=== PATIENT | male | born 1985 | race African-American/Black ===

== ENCOUNTER 2018-06-13 20:27 | Emergency (ER) | payer OTHER ==
[2018-06-13] MEDS ORDERED: Bacitracin Zinc 1 Packet ONE (21:03)
== END 2018-06-13 21:10 | disposition home or self-care (01) ==
LOC: ERS 20:27
DX: S61.211D Laceration without foreign body of left index finger without damage to nail, subsequent encounter (principal); F17.210 Nicotine dependence, cigarettes, uncomplicated; X58.XXXD Exposure to other specified factors, subsequent encounter

== ENCOUNTER 2025-05-07 16:01 | Inpatient (IN) | payer OTHER, SELFPAY ==
[2025-05-07] MEDS ORDERED: cefTRIAXone (ROCEPHIN) 2 GM VIAL ONE (18:23)
[2025-05-07 18:58] LABS: Hematocrit 35.5 % (42.0-52.0); Hemoglobin 11.9 g/dL (14.0-18.0); Mean Corpuscular Hemoglobin 30.6 pg (27.0-31.0); Mean Corpuscular Volume 91.3 fL (78.0-98.0); Platelet Count 310 10x3/uL (130-400); Red Blood Cell (RBC) Count 3.89 mill/uL (4.70-6.10); White Blood Cell (WBC) Count 34.03 10x3/uL (4.8-10.8)
[2025-05-07 19:13] LABS: Anisocytosis SLIGHT = 6-15 cells HPF (0-5); Dohle Bodies SLIGHT; Macrocytosis SLIGHT = 6-15 cells HPF (0-5); Platelet Adequacy Comment Platelets Normal; Smudge Cells 2.0 %; Toxic Granulation MODERATE
[2025-05-07 19:14] LABS: ALT (SGPT) 34 U/L (Less than 45); AST (SGOT) 127 U/L (11-34); Acetaminophen Less than 10 mcg/mL (Less than 10); Albumin 2.4 g/dL (3.1-4.5); Alkaline Phosphatase 116 U/L (40-110); Anion Gap 18 mmol/L (10-20); BUN (Urea Nitrogen) 42 mg/dL (8.9-20.6); Bilirubin, Total 1.8 mg/dL (0.3-1.2); Calc. Creatinine Clearance 0 mL/min (70-130); Calcium 9.2 mg/dL (7.8-10.44); Carbon Dioxide 21 mmol/L (22-29); Chloride 102 mmol/L (98-107); Globulin 6.6 g/dL (2.4-3.5); Glucose 107 mg/dL (70-105); Lipase 58 U/L (8-78); Potassium 4.9 mmol/L (3.5-5.1); Salicylate Less than 8.0 mg/dL (Less than 8.0); Sodium 136 mmol/L (136-145)
[2025-05-07 19:19] LABS: Troponin I 0.014 ng/mL (< 0.028)
[2025-05-07] MEDS ORDERED: Cefepime 2 GM VIAL ONE (19:22)
[2025-05-07] MEDS ORDERED: LevoFLOXacin 750 mg/D5W 150 ml Premix Bag ONE (19:42)
[2025-05-07 20:44] LABS: Cocaine Metabolite Screen Negative (Negative); THC/Cannabinoid Screen PRELIM POSITIVE (Negative); Tricyclic Screen Negative (Negative)
[2025-05-07] MEDS ORDERED: Calcium Carbonate 500 MG ChewTAB PO PRN (22:23)
[2025-05-07] MEDS ORDERED: Ondansetron PF 4 MG/2 ML Vial IVP PRN (22:23)
[2025-05-07] MEDS ORDERED: Electrolyte Replacement Protocol 1 EACH FS SCH (22:30)
[2025-05-07] MEDS: VANCOMYCIN 1.75 GM/350 ML Premix BAG IVPB SCH (23:53)
[2025-05-08 00:48] VITALS: BMI 18.1
[2025-05-08 07:22] LABS: ALT (SGPT) 19 U/L (Less than 45); AST (SGOT) 59 U/L (11-34); Albumin 1.7 g/dL (3.1-4.5); Alkaline Phosphatase 90 U/L (40-110); Anion Gap 9 mmol/L (10-20); BUN (Urea Nitrogen) 23 mg/dL (8.9-20.6); Bilirubin, Total 0.8 mg/dL (0.3-1.2); Calc. Creatinine Clearance 82 mL/min (70-130); Calcium 8.1 mg/dL (7.8-10.44); Carbon Dioxide 19 mmol/L (22-29); Chloride 112 mmol/L (98-107); Globulin 4.8 g/dL (2.4-3.5); Glucose 98 mg/dL (70-105); Potassium 4.4 mmol/L (3.5-5.1); Sodium 136 mmol/L (136-145)
[2025-05-08 08:04] LABS: Hematocrit 26.5 % (42.0-52.0); Hemoglobin 8.7 g/dL (14.0-18.0); Mean Corpuscular Hemoglobin 30.3 pg (27.0-31.0); Mean Corpuscular Volume 92.3 fL (78.0-98.0); Platelet Count 268 10x3/uL (130-400); Red Blood Cell (RBC) Count 2.87 mill/uL (4.70-6.10); White Blood Cell (WBC) Count 26.50 10x3/uL (4.8-10.8)
[2025-05-08 09:10] LABS: Platelet Adequacy Comment Platelets Normal; Polychromasia SLIGHT = 2-3 cells HPF (0-2); Target Cells SLIGHT = 2-5 cells HPF (0-1); Toxic Granulation MODERATE
[2025-05-09 06:46] LABS: #Basophils 0.03 10x3/uL (0.0-0.2); #Eosinophils 0.03 10x3/uL (0.0-0.7); #Monocytes 0.39 10x3/uL (0.11-0.59); #Neutrophils 10.72 10x3/uL (1.40-6.50); %Basophils 0.3 % (0.0-1.0); %Eosinophils 0.3 % (0.0-10.0); %Lymphocytes 2.6 % (21.0-51.0); %Monocytes 3.3 % (0.0-10.0); %Neutrophils 91.6 % (42.0-75.0); Hematocrit 31.8 % (42.0-52.0); Hemoglobin 10.0 g/dL (14.0-18.0); Mean Corpuscular Hemoglobin 29.2 pg (27.0-31.0); Mean Corpuscular Volume 92.7 fL (78.0-98.0); Platelet Count 331 10x3/uL (130-400); Red Blood Cell (RBC) Count 3.43 mill/uL (4.70-6.10); White Blood Cell (WBC) Count 11.70 10x3/uL (4.8-10.8)
[2025-05-09 07:03] LABS: ALT (SGPT) 18 U/L (Less than 45); AST (SGOT) 51 U/L (11-34); Albumin 1.7 g/dL (3.1-4.5); Alkaline Phosphatase 75 U/L (40-110); Anion Gap 10 mmol/L (10-20); BUN (Urea Nitrogen) 14 mg/dL (8.9-20.6); Bilirubin, Total 0.3 mg/dL (0.3-1.2); Calc. Creatinine Clearance 107 mL/min (70-130); Calcium 8.5 mg/dL (7.8-10.44); Carbon Dioxide 20 mmol/L (22-29); Chloride 111 mmol/L (98-107); Globulin 4.8 g/dL (2.4-3.5); Glucose 98 mg/dL (70-105); Potassium 4.2 mmol/L (3.5-5.1); Sodium 137 mmol/L (136-145)
[2025-05-09 07:26] LABS: Hep C Index 0.15 S/CO (0-0.79)
[2025-05-09 08:01] LABS: Hep A IgM AB NONREACTIVE (NonReactive); Hep B Surf Ag NONREACTIVE S/CO (NonReactive)
[2025-05-09 08:02] LABS: Hep A IgM S/CO 0.13 S/CO (0-0.79); Hep B Core IgM Index 0.08 S/CO (0-0.79); Hep C IgG Ab NONREACTIVE S/CO (NonReactive)
[2025-05-09 08:11] LABS: HIV (1/2) Antibody/Antigen Reflxed Confirmation (NonReactive)
[2025-05-09 08:16] LABS: HIV 1/2 INDEX 821.01 S/CO (<1.00)
[2025-05-09 13:59] VITALS: BMI 18.1
[2025-05-10 06:03] LABS: #Basophils Less than 0.03 10x3/uL (0.0-0.2); #Eosinophils 0.08 10x3/uL (0.0-0.7); #Monocytes 0.40 10x3/uL (0.11-0.59); #Neutrophils 7.94 10x3/uL (1.40-6.50); %Basophils 0.1 % (0.0-1.0); %Eosinophils 0.9 % (0.0-10.0); %Lymphocytes 3.9 % (21.0-51.0); %Monocytes 4.4 % (0.0-10.0); %Neutrophils 87.1 % (42.0-75.0); Hematocrit 27.3 % (42.0-52.0); Hemoglobin 8.9 g/dL (14.0-18.0); Mean Corpuscular Hemoglobin 29.6 pg (27.0-31.0); Mean Corpuscular Volume 90.7 fL (78.0-98.0); Platelet Count 366 10x3/uL (130-400); Red Blood Cell (RBC) Count 3.01 mill/uL (4.70-6.10); White Blood Cell (WBC) Count 9.12 10x3/uL (4.8-10.8)
[2025-05-10 06:24] LABS: ALT (SGPT) 29 U/L (Less than 45); AST (SGOT) 82 U/L (11-34); Albumin 1.7 g/dL (3.1-4.5); Alkaline Phosphatase 66 U/L (40-110); Anion Gap 8 mmol/L (10-20); BUN (Urea Nitrogen) 10 mg/dL (8.9-20.6); Bilirubin, Total 0.4 mg/dL (0.3-1.2); Calc. Creatinine Clearance 120 mL/min (70-130); Calcium 8.1 mg/dL (7.8-10.44); Carbon Dioxide 20 mmol/L (22-29); Chloride 108 mmol/L (98-107); Globulin 4.6 g/dL (2.4-3.5); Glucose 98 mg/dL (70-105); Potassium 4.3 mmol/L (3.5-5.1); Sodium 132 mmol/L (136-145)
[2025-05-10] MEDS: Nystatin 500,000 UNITS/5 ML UDCUP SSW SCH (12:34)
[2025-05-10 14:14] LABS: %CD4 (Helper/Inducer) 0.7 % (30.8-58.5); Absolute CD4 3 /uL (359-1519); Lymphocytes/Gated Cell Count 0.4 x10E3/uL (0.7-3.1); Total Lymphocyte 3 % (Not Estab.); WBC Total Count 11.2 x10E3/uL (3.4-10.8)
[2025-05-10] MEDS: Diphenoxylate HCl/Atropine Tablet PO SCH (14:28)
[2025-05-11] MEDS: Acetaminophen 325 MG TAB PO PRN (04:47)
[2025-05-11 05:48] LABS: Hematocrit 29.0 % (42.0-52.0); Hemoglobin 9.5 g/dL (14.0-18.0); Mean Corpuscular Hemoglobin 30.4 pg (27.0-31.0); Mean Corpuscular Volume 92.7 fL (78.0-98.0); Platelet Count 367 10x3/uL (130-400); Red Blood Cell (RBC) Count 3.13 mill/uL (4.70-6.10); White Blood Cell (WBC) Count 7.43 10x3/uL (4.8-10.8)
[2025-05-11 06:01] LABS: ALT (SGPT) 44 U/L (Less than 45); AST (SGOT) 101 U/L (11-34); Albumin 1.9 g/dL (3.1-4.5); Alkaline Phosphatase 63 U/L (40-110); Anion Gap 10 mmol/L (10-20); BUN (Urea Nitrogen) 9 mg/dL (8.9-20.6); Bilirubin, Total 0.4 mg/dL (0.3-1.2); Calc. Creatinine Clearance 103 mL/min (70-130); Calcium 8.3 mg/dL (7.8-10.44); Carbon Dioxide 18 mmol/L (22-29); Chloride 105 mmol/L (98-107); Globulin 4.8 g/dL (2.4-3.5); Glucose 102 mg/dL (70-105); Potassium 4.3 mmol/L (3.5-5.1); Sodium 129 mmol/L (136-145)
[2025-05-11 06:45] LABS: Anisocytosis SLIGHT = 6-15 cells HPF (0-5); Macrocytosis SLIGHT = 6-15 cells HPF (0-5); Platelet Adequacy Comment Platelets Normal; Polychromasia SLIGHT = 2-3 cells HPF (0-2); Smudge Cells 14.9 %
[2025-05-11] MEDS ORDERED: Iopamidol-370 76% 500 ML MDV (1 ML CHARGE) ONE (12:39)
[2025-05-11] MEDS: Sulfameth/Trimethoprim DS 800-160mg TAB PO SCH (20:26)
[2025-05-12 08:30] LABS: #Basophils Less than 0.03 10x3/uL (0.0-0.2); #Eosinophils 0.03 10x3/uL (0.0-0.7); #Monocytes 0.47 10x3/uL (0.11-0.59); #Neutrophils 8.11 10x3/uL (1.40-6.50); %Basophils 0.2 % (0.0-1.0); %Eosinophils 0.3 % (0.0-10.0); %Lymphocytes 6.0 % (21.0-51.0); %Monocytes 4.9 % (0.0-10.0); %Neutrophils 84.2 % (42.0-75.0); Hematocrit 30.4 % (42.0-52.0); Hemoglobin 9.9 g/dL (14.0-18.0); Mean Corpuscular Hemoglobin 30.0 pg (27.0-31.0); Mean Corpuscular Volume 92.1 fL (78.0-98.0); Platelet Count 384 10x3/uL (130-400); Red Blood Cell (RBC) Count 3.30 mill/uL (4.70-6.10); White Blood Cell (WBC) Count 9.63 10x3/uL (4.8-10.8)
[2025-05-12 08:42] LABS: Anion Gap 13 mmol/L (10-20); BUN (Urea Nitrogen) 12 mg/dL (8.9-20.6); Calc. Creatinine Clearance 100 mL/min (70-130); Calcium 8.6 mg/dL (7.8-10.44); Carbon Dioxide 21 mmol/L (22-29); Chloride 101 mmol/L (98-107); Glucose 90 mg/dL (70-105); Potassium 4.2 mmol/L (3.5-5.1); Sodium 131 mmol/L (136-145)
[2025-05-12 14:14] LABS: HIV-1 Quantitative, RNA PCR 97700.0 copies/mL (.); LOG10 HIV-1 RNA 4.99 (.)
[2025-05-13 06:36] LABS: #Basophils Less than 0.03 10x3/uL (0.0-0.2); #Eosinophils Less than 0.03 10x3/uL (0.0-0.7); #Monocytes 0.36 10x3/uL (0.11-0.59); #Neutrophils 6.47 10x3/uL (1.40-6.50); %Basophils 0.1 % (0.0-1.0); %Eosinophils 0.0 % (0.0-10.0); %Lymphocytes 7.2 % (21.0-51.0); %Monocytes 4.7 % (0.0-10.0); %Neutrophils 85.0 % (42.0-75.0); Hematocrit 28.7 % (42.0-52.0); Hemoglobin 9.5 g/dL (14.0-18.0); Mean Corpuscular Hemoglobin 30.0 pg (27.0-31.0); Mean Corpuscular Volume 90.5 fL (78.0-98.0); Platelet Count 405 10x3/uL (130-400); Red Blood Cell (RBC) Count 3.17 mill/uL (4.70-6.10); White Blood Cell (WBC) Count 7.62 10x3/uL (4.8-10.8)
[2025-05-13 06:55] LABS: Anion Gap 11 mmol/L (10-20); BUN (Urea Nitrogen) 10 mg/dL (8.9-20.6); Calc. Creatinine Clearance 87 mL/min (70-130); Calcium 7.9 mg/dL (7.8-10.44); Carbon Dioxide 20 mmol/L (22-29); Chloride 99 mmol/L (98-107); Glucose 91 mg/dL (70-105); Potassium 4.3 mmol/L (3.5-5.1); Sodium 126 mmol/L (136-145)
[2025-05-14 07:25] LABS: #Basophils Less than 0.03 10x3/uL (0.0-0.2); #Eosinophils Less than 0.03 10x3/uL (0.0-0.7); #Monocytes 0.20 10x3/uL (0.11-0.59); #Neutrophils 3.99 10x3/uL (1.40-6.50); %Basophils 0.4 % (0.0-1.0); %Eosinophils 0.2 % (0.0-10.0); %Lymphocytes 9.0 % (21.0-51.0); %Monocytes 4.2 % (0.0-10.0); %Neutrophils 83.3 % (42.0-75.0); Hematocrit 31.4 % (42.0-52.0); Hemoglobin 10.1 g/dL (14.0-18.0); Mean Corpuscular Hemoglobin 29.2 pg (27.0-31.0); Mean Corpuscular Volume 90.8 fL (78.0-98.0); Platelet Count 416 10x3/uL (130-400); Red Blood Cell (RBC) Count 3.46 mill/uL (4.70-6.10); White Blood Cell (WBC) Count 4.79 10x3/uL (4.8-10.8)
[2025-05-14 07:45] LABS: Anion Gap 11 mmol/L (10-20); BUN (Urea Nitrogen) 13 mg/dL (8.9-20.6); Calc. Creatinine Clearance 84 mL/min (70-130); Calcium 8.2 mg/dL (7.8-10.44); Carbon Dioxide 22 mmol/L (22-29); Chloride 100 mmol/L (98-107); Glucose 88 mg/dL (70-105); Potassium 4.1 mmol/L (3.5-5.1); Sodium 129 mmol/L (136-145)
[2025-05-15 05:29] LABS: #Basophils Less than 0.03 10x3/uL (0.0-0.2); #Eosinophils Less than 0.03 10x3/uL (0.0-0.7); #Monocytes 0.15 10x3/uL (0.11-0.59); #Neutrophils 4.71 10x3/uL (1.40-6.50); %Basophils 0.0 % (0.0-1.0); %Eosinophils 0.2 % (0.0-10.0); %Lymphocytes 8.7 % (21.0-51.0); %Monocytes 2.8 % (0.0-10.0); %Neutrophils 87.0 % (42.0-75.0); Hematocrit 28.9 % (42.0-52.0); Hemoglobin 9.4 g/dL (14.0-18.0); Mean Corpuscular Hemoglobin 28.9 pg (27.0-31.0); Mean Corpuscular Volume 88.9 fL (78.0-98.0); Platelet Count 407 10x3/uL (130-400); Red Blood Cell (RBC) Count 3.25 mill/uL (4.70-6.10); White Blood Cell (WBC) Count 5.41 10x3/uL (4.8-10.8)
[2025-05-15 06:00] LABS: Anion Gap 11 mmol/L (10-20); BUN (Urea Nitrogen) 13 mg/dL (8.9-20.6); Calc. Creatinine Clearance 87 mL/min (70-130); Calcium 8.0 mg/dL (7.8-10.44); Carbon Dioxide 22 mmol/L (22-29); Chloride 99 mmol/L (98-107); Glucose 90 mg/dL (70-105); Potassium 4.5 mmol/L (3.5-5.1); Sodium 127 mmol/L (136-145)
[2025-05-15] MEDS: Ketorolac Tromethamine 30 MG (1 mL) VIAL IVP PRN (10:59)
[2025-05-15] MEDS: Transdermal Patch Removal TOP SCH (20:35)
[2025-05-16 05:11] LABS: #Basophils 0.03 10x3/uL (0.0-0.2); #Eosinophils Less than 0.03 10x3/uL (0.0-0.7); #Monocytes 0.11 10x3/uL (0.11-0.59); #Neutrophils 3.69 10x3/uL (1.40-6.50); %Basophils 0.7 % (0.0-1.0); %Eosinophils 0.0 % (0.0-10.0); %Lymphocytes 7.4 % (21.0-51.0); %Monocytes 2.6 % (0.0-10.0); %Neutrophils 88.3 % (42.0-75.0); Hematocrit 29.7 % (42.0-52.0); Hemoglobin 9.7 g/dL (14.0-18.0); Mean Corpuscular Hemoglobin 29.1 pg (27.0-31.0); Mean Corpuscular Volume 89.2 fL (78.0-98.0); Platelet Count 404 10x3/uL (130-400); Red Blood Cell (RBC) Count 3.33 mill/uL (4.70-6.10); White Blood Cell (WBC) Count 4.18 10x3/uL (4.8-10.8)
[2025-05-16 06:04] LABS: Anion Gap 12 mmol/L (10-20); BUN (Urea Nitrogen) 15 mg/dL (8.9-20.6); Calc. Creatinine Clearance 91 mL/min (70-130); Calcium 8.1 mg/dL (7.8-10.44); Carbon Dioxide 21 mmol/L (22-29); Chloride 102 mmol/L (98-107); Glucose 89 mg/dL (70-105); Potassium 4.4 mmol/L (3.5-5.1); Sodium 131 mmol/L (136-145)
[2025-05-16 09:13] LABS: Fungitell Beta (1,3) D-Glucan Positive (.)
[2025-05-16 17:08] VITALS: BP 93/63; TEMP 97.7
== END 2025-05-16 17:16 | disposition home or self-care (01) | DRG 974 ==
LOC: ERS 16:01 → ERHOLD 22:12 → T4-B 23:05
PROVIDERS: ADMIT Student in an Organized Health Care Education/Training Program; ATTEND Family Medicine
DX: A41.9 Sepsis, unspecified organism (principal); E43 Unspecified severe protein-calorie malnutrition; B20 Human immunodeficiency virus [HIV] disease; N17.9 Acute kidney failure, unspecified; Z68.1 Body mass index [BMI] 19.9 or less, adult; E87.1 Hypo-osmolality and hyponatremia; J18.9 Pneumonia, unspecified organism; Z90.89 Acquired absence of other organs; Z98.890 Other specified postprocedural states; F16.10 Hallucinogen abuse, uncomplicated; F31.9 Bipolar disorder, unspecified; F41.9 Anxiety disorder, unspecified; F17.200 Nicotine dependence, unspecified, uncomplicated; Z71.6 Tobacco abuse counseling
CPT/HCPCS: 36415; 71046; 71250; 71260; 74177; 80048; 80053; 80074; 80306; 80307; 82550; 83605; 83615; 83690; 84145; 84443; 84484; 85025; 86361; 87040; 87324; 87389; 87449; 87535; 87536; 87538; 93005; 93970; 94640; 96365; 96366; 96368; 96375; J0692; J0696; J1885; J1956; J2185; J3370; J7120; J7620; Q9967